=== PATIENT | female | born 1975 | race American Indian/Alaskan Native ===

== ENCOUNTER 2016-08-03 14:20 | Outpatient (CLI) | payer OTHER ==
--- NOTE | 2016-08-04 08:32 | Mammography Report ---
BILATERAL DIGITAL SCREENING MAMMOGRAM with CAD :08/03/16 14:20:00 CLINICAL: Baseline screening. FINDINGS: The breasts are extremely dense, which lowers the sensitivity of mammography. A few bilateral benign vascular calcifications.No mass, architectural distortion or suspicious calcifications. IMPRESSION: No mammographic evidence of malignancy. BI-RADS CATEGORY: 2 -- Benign RECOMMENDATION: Routine mammographic screening in one year. ACR BI-RADS MAMMOGRAPHIC CODES: 0 = Needs additional imaging evaluation; 1 = Negative; 2 = Benign; 3 = Probably benign; 4 = Suspicious; 5 = Malignant; 6 = Known biopsy-proven malignancy COMMENT: 1. Dense breast tissue, i.e., adenosis, fibrocystic changes, etc., may obscure an underlying neoplasm. 2. Approximately 10% of cancers are not detected with mammography. 3. A negative mammography report should not delay biopsy if a clinically suspicious mass is present. Patient follow-up letters are generated by our [employer] application.
== END 2016-08-03 14:21 | disposition home or self-care (01) ==
LOC: SPVWC 14:20
PROVIDERS: ATTEND Family Medicine
DX: Z12.31 Encounter for screening mammogram for malignant neoplasm of breast (principal)
CPT/HCPCS: 77067; G0202